=== PATIENT | female | born 1990 | race Caucasian/White ===

== ENCOUNTER 2018-10-16 22:21 | Emergency (ER) | payer OTHER ==
[~2018-10-16] VITALS: Ht 157.5 cm; Wt 56.7 kg
[2018-10-16] MEDS ORDERED: NOHOMEMEDICATIONS (22:44)
[2018-10-16 23:20] LABS: ABSOLUTE BASOPHILS 0.1 thou/uL (0.0-0.2); ABSOLUTE EOSINOPHILS 0.3 thou/uL (0.0-0.7); ABSOLUTE LYMPHOCYTES 2.3 thou/uL (0.8-5.3); ABSOLUTE MONOCYTES 0.4 thou/uL (0.0-1.2); ABSOLUTE NEUTROPHILS 4.7 thou/uL (1.6-8.1); BASOPHILS 1.1 %; EOSINOPHILS 3.5 %; HEMATOCRIT 43.5 % (37.0-47.0); LYMPHOCYTES 29.6 %; MCH 28.2 pg (26.0-34.0); MCHC 32.3 g/dL (28.0-37.0); MCV 87.1 fL (80.0-100.0); MONOCYTES 5.5 %; MPV 8.2 fl. (7.2-11.1); NUCLEATED RBCS 0 /100WBC; PLATELET COUNT* 274 thou/uL (150-400); POLYS 60.3 %; RBC 4.99 mil/uL (4.20-5.00); RDW-CV 13.1 % (10.5-14.5); WBC 7.8 thou/uL (4.0-11.0)
[2018-10-16 23:40] LABS: ANION GAP 11 mmol/L (7-16); BUN 10 mg/dL (7-18); CALCIUM 9.2 mg/dL (8.5-10.1); CHLORIDE 102 mmol/L (98-107); CO2 27 mmol/L (21-32); CREATININE 0.7 mg/dL (0.6-1.3); GLUCOSE 93 mg/dL (70-99); POTASSIUM 4.3 mmol/L (3.5-5.1); SODIUM 140 mmol/L (136-145); TROPONIN-I LEVEL <0.06 ng/mL (<0.06)
[2018-10-16 23:51] LABS: ALBUMIN 4.1 g/dL (3.4-5.0); ALKALINE PHOSPHATASE 116 U/L (46-116); NT-PRO BRAIN NAT PEPTIDE 21 pg/mL (<300); SGOT 39 U/L (15-37); SGPT 49 U/L (30-65); TOTAL BILIRUBIN 0.9 mg/dL (<0.1-1.0)
[2018-10-17 00:30] VITALS: BP 115/82
--- NOTE | 2018-10-17 15:13 | EKG ---
[place] [address] ELECTROCARDIOGRAM REPORT Name: KHUSHBU ROJAS Room: [facility]#: [id number] Admission: 10/16/18 Attend Phys: Discharge: 10/17/18 Date of : [birth year] Report #: [id number] THIS REPORT FOR: //name// [facility] Test Date: 2018-10-16 Test Time: 22:29:01 Pat Name: KHUSHBU ROJAS Department: Room: Gender: F Children'S Counselor: Elsie REYES : 1990 Requested By: Suzette Zamudio Order Number: [id number] MD: Deandre Carson Measurements Intervals Belt Rate: 86 P: 47 MO: 118 QRS: 59 QRSD: 73 T: 31 QT: 351 QTc: 420 Interpretive Statements Sinus rhythm Borderline short MO interval No previous ECG available for comparison Electronically Signed On 10-17-2018 15:13:51 CDT by Deandre Carson [email or web address] <ELECTRONICALLY SIGNED> By: Deandre Carson MD, [facility] 10/17/18 1513 [id number] Deandre Carson MD, FACC /EPI
== END 2018-10-17 00:32 | disposition home or self-care (01) ==
LOC: M.ERS 22:21
PROVIDERS: Physician Assistant
DX: R07.89 Other chest pain (principal)